=== PATIENT | male | born 1975 | race Caucasian/White ===

== ENCOUNTER 2023-05-30 08:14 | Emergency (ER) | payer OTHER ==
[~2023-05-30] VITALS: Ht 172.7 cm; Wt 79.4 kg
[2023-05-30 08:15] VITALS: BP_SYST 117; PULSE 80; RESP 19; TEMP 98.1; O2SAT 97
[2023-05-30] MEDS ORDERED: DIAZEPAM 10 MG/2 ML DISP.SYRIN IVP ONE (08:30)
[2023-05-30] MEDS: NACL 0.9% 1,000 ML IV ONE (08:47)
[2023-05-30] MEDS: DIPHENHYDRAMINE INJ 50 MG/ML VIAL IVP ONE (08:47)
[2023-05-30] MEDS: ONDANSETRON HCL 4 MG/2 ML VIAL IVP ONE (08:47)
[2023-05-30 08:59] LABS: BASOPHILS # (AUTO) 0.1 K/uL (0.0-0.2); BASOPHILS % (AUTO) 0.8 % (0.0-2.0); EOSINOPHILS # (AUTO) 0.2 K/uL (0.0-0.4); EOSINOPHILS % (AUTO) 2.4 % (0.0-4.0); HEMATOCRIT 43.2 % (36-54); LYMPHOCYTES # (AUTO) 3.6 K/uL (1.0-5.5); LYMPHOCYTES % (AUTO) 44.7 % (20.5-51.5); MEAN CORPUSCULAR HEMOGLOBIN 30 pg (27-31); MEAN CORPUSCULAR HGB CONC 35 % (32-36); MEAN CORPUSCULAR VOLUME 87 fL (79.0-98.0); MONOCYTES # (AUTO) 0.8 K/uL (0.0-1.0); MONOCYTES % (AUTO) 9.4 % (1.7-9.3); NEUTROPHILS # (AUTO) 3.4 K/uL (1.8-7.7); NEUTROPHILS % (AUTO) 42.7 % (40.0-70.0); PLATELET COUNT (AUTO) 245 K/uL (130-430); RED BLOOD CELL COUNT(AUTO) 4.98 MIL/uL (4.2-6.2); RED CELL DISTRIBUTION WIDTH 13.1 % (9.0-15.0)
[2023-05-30 09:10] LABS: ANION GAP 14 (5-15); CALCIUM 8.9 mg/dL (8.4-11.0); CARBON DIOXIDE 20 mmol/L (23-29); CHLORIDE 106 mmol/L (98-107); CREATININE 1.21 mg/dL (0.55-1.30); GFR AFRICAN AMERICAN 82 mL/min (>90); GLUCOSE 127 mg/dL (74-106); SODIUM SERUM 140 mmol/L (136-145); UREA NITROGEN, BLOOD 15 mg/dL (8-21)
[2023-05-30 09:11] LABS: GFR NON AFRICAN-AMERICAN 68 mL/min (>90)
[2023-05-30] MEDS: MECLIZINE HCL 25 MG TABLET (ANITVERT) PO ONE (09:12)
[2023-05-30 09:17] LABS: ALANINE AMINOTRANSFERASE 27 U/L (12-78); ALBUMIN 3.7 g/dL (3.4-4.8); ASPARTATE AMINOTRANSFERASE 29 U/L (10-37); BILIRUBIN,DIRECT 0.1 mg/dL (0.0-0.3); LIPASE 22 U/L (16-77); TOTAL BILIRUBIN 0.9 mg/dL (0.0-1.0); TOTAL PROTEIN, SERUM 7.5 g/dL (6.4-8.3)
[2023-05-30 09:19] LABS: POTASSIUM 3.3 mmol/L (3.5-5.1)
[2023-05-30] MEDS: POTASSIUM CHLORIDE 20 MEQ TABLET.ER PO ONE (10:03)
[2023-05-30] MEDS ORDERED: AMOX-423 PO (10:11)
[2023-05-30] MEDS ORDERED: ONDA-8 TL (10:11)
[2023-05-30] MEDS ORDERED: MECL-108 PO (10:11)
[2023-05-30 10:24] VITALS: BP_SYST 125; PULSE 67; RESP 18; TEMP 97.9; O2SAT 100
== END 2023-05-30 10:20 | disposition home or self-care (01) ==
LOC: SED 08:14
DX: H81.10 Benign paroxysmal vertigo, unspecified ear (principal); R11.2 Nausea with vomiting, unspecified; Z79.899 Other long term (current) drug therapy
CPT/HCPCS: 99285; 70450; 96374; 71045; 96361; 96375; 80076; 80048; 83690; 85025; 84484; 36415; 70496; 70498; J1200; J2405; J7030; J8597; Q9967